=== PATIENT | female | born 1935 | race Caucasian/White ===

== ENCOUNTER → 2016-08-17 | Outpatient (CLI) | payer OTHER, MEDICARE ==
[~2016-08-17] MED LIST: ALBUAER2; AMLO-110 PO; AMOX1TAB43 PO; APIX1TAB3 PO; CHOL100010 PO; DOCU1TAB6 PO; ENOX40IN SQ; LEVO25TA PO; LTN/2025 PO; MISCCAP80 PO; ONDA4TAB46 PO; OXYC-609 PO; PARO1TAB27 PO; POTA-335 PO; POTA20TA16 PO; TIOTCAP INH; VNCS150 PO; VNTHFA/IN INH
[2016-08-17 11:13] LABS: BASO % 0.3 %; BASO ABS # 0.02 K/uL (0-0.2); COMPLETE YES; EOS % 1.3 %; HEMATOCRIT 39.4 % (37-47); IG% 0.1 %; LYMPH % 14.4 %; LYMPH ABS # 0.97 K/uL (1.2-3.4); MEAN CELL VOLUME 90.4 fL (80-100); MEAN CORPUSCULAR HGB CONC 33.2 g/dl (32-36); MEAN PLATELET VOLUME 11.3 fL (7.4-10.4); MONO % 7.9 %; PLATELET COUNT 159 K/uL (130-400); RED BLOOD COUNT 4.36 M/uL (4.2-5.4); WHITE BLOOD COUNT 6.73 K/uL (4.8-10.8)
[2016-08-17 12:40] LABS: BLOOD UREA NITROGEN 16 mg/dl (7-18); BUN/CREATININE RATIO 17.3 (10-20); CALCIUM 9.6 mg/dl (8.5-10.1); CARBON DIOXIDE 31 mmol/L (21-32); CHLORIDE 101 mmol/L (98-107); GLUCOSE 99 mg/dl (70-99); POTASSIUM 3.4 mmol/L (3.5-5.1); SODIUM 139 mmol/L (136-145)
== END ==
LOC: C.LAB 10:23
PROVIDERS: ATTEND Internal Medicine Geriatric Medicine
DX: I10 Essential (primary) hypertension (principal); E87.6 Hypokalemia; E03.9 Hypothyroidism, unspecified

== ENCOUNTER → 2016-08-24 | Outpatient (CLI) | payer OTHER, MEDICARE ==
[2016-08-24 10:58] LABS: BASO % 0.4 %; BASO ABS # 0.03 K/uL (0-0.2); COMPLETE YES; EOS % 0.5 %; HEMATOCRIT 39.1 % (37-47); IG% 0.2 %; LYMPH ABS # 1.36 K/uL (1.2-3.4); MEAN CELL VOLUME 90.7 fL (80-100); MEAN CORPUSCULAR HEMOGLOBIN 30.4 pg (25-34); MEAN CORPUSCULAR HGB CONC 33.5 g/dl (32-36); MEAN PLATELET VOLUME 11.3 fL (7.4-10.4); MONO % 6.6 %; NEUT % 76.3 %; PLATELET COUNT 165 K/uL (130-400); RED BLOOD COUNT 4.31 M/uL (4.2-5.4); WHITE BLOOD COUNT 8.49 K/uL (4.8-10.8)
[2016-08-24 11:04] LABS: PARTIAL THROMBOPLASTIN RATIO 1.3; PROTHROMBIN TIME (PATIENT) 11.2 SECONDS (9.0-12.0)
[2016-08-24 11:21] LABS: ALT/SGPT 24 U/L (12-78); AST/SGOT 44 U/L (15-37); BLOOD UREA NITROGEN 15 mg/dl (7-18); BUN/CREATININE RATIO 17.4 (10-20); CALCIUM 9.6 mg/dl (8.5-10.1); CARBON DIOXIDE 30 mmol/L (21-32); CHLORIDE 103 mmol/L (98-107); CREATININE 0.84 mg/dl (0.60-1.20); GLUCOSE 173 mg/dl (70-99); MAGNESIUM 2.2 mg/dl (1.8-2.4); POTASSIUM 3.6 mmol/L (3.5-5.1); SODIUM 141 mmol/L (136-145)
[2016-08-24 11:24] LABS: ALKALINE PHOSPHATASE 122 U/L (45-117); PHOSPHORUS 2.6 mg/dl (2.5-4.9)
== END | disposition home or self-care (01) ==
LOC: C.LAB 10:05
PROVIDERS: ATTEND Specialist
DX: C34.90 Malignant neoplasm of unspecified part of unspecified bronchus or lung (principal)

== ENCOUNTER → 2016-09-10 | Outpatient (CLI) | payer OTHER, MEDICARE ==
[2016-09-10 17:28] LABS: BLOOD UREA NITROGEN 19 mg/dl (7-18); BUN/CREATININE RATIO 20.5 (10-20); CALCIUM 9.4 mg/dl (8.5-10.1); CARBON DIOXIDE 31 mmol/L (21-32); CHLORIDE 101 mmol/L (98-107); CREATININE 0.93 mg/dl (0.60-1.20); GLUCOSE 134 mg/dl (70-99); POTASSIUM 4.3 mmol/L (3.5-5.1); SODIUM 140 mmol/L (136-145)
== END | disposition home or self-care (01) ==
LOC: C.LABBC 13:34
PROVIDERS: ATTEND Internal Medicine Geriatric Medicine
DX: E87.6 Hypokalemia (principal)

== ENCOUNTER → 2017-04-10 | Outpatient (CLI) | payer OTHER, MEDICARE ==
--- NOTE | 2017-04-10 10:01 | DIAGNOSTIC IMAGING REPORT ---
PET/CT SKULL-THIGH HISTORY: Lung carcinoma NON SMALL CELL LUNG CANCER TECHNIQUE: PET/CT was performed from the base of the skull through the pelvis following the intravenous administration of 15.4 mCi of F18-FDG. Non-contrast CT imaging was performed over the same range without breath-hold for attenuation correction of PET images and anatomic correlation, but not for primary interpretation as it is not of standard diagnostic quality. CT DOSE: COMPARISON: None. FINDINGS: HEAD AND NECK: Metabolically active nodes deep to the right as well as left sternocleidomastoid muscle. On the right a metabolically active node has SUVs of 2.7 and measures 7 mm. Deep to the left sternocleidomastoid muscle is a node measuring 11 mm with SUVs of 4.7 the remainder of the soft tissue neck is unremarkable. Chest: Evaluation of the chest demonstrates chronic apical scarring and bronchiectatic change. A right anterior paratracheal/right suprahilar mass is present. A maximum dimension of 3.8 cm. SUV characteristics are approximately 8.8. There is a right subcarinal node/paraesophageal node having SUVs of 9.9 and measuring 1.8 cm. Anterior precarinal nodes measure to 1.6 cm with SUVs to 2.2. Small additional metastatic foci active nodes are present. There is a left basilar chest wall mass demonstrates SUV characteristics to 6.0 this is surrounded by moderately metabolically active fawn pathology as well as postoperative change with a maximum dimension of 2.8 cm. A potential pathologic lower left rib fracture is present. Abdomen and pelvis: Metabolic activity characteristics of the liver spleen and pancreas are unremarkable. Bilateral renal activity is noted. Aneurysmal dilatation of the abdominal aorta is present measuring 23.6 cm. Unremarkable gastrointestinal and genitourinary tract activity is present. A minimally metabolically active nodes to 1.8 SUVs is demonstrated anterior to the right acetabulum and measuring 1.0 cm. MUSCULOSKELETAL: There is no FDG-avid or destructive bone lesion. IMPRESSION: 1. Findings consistent with diffuse metastatic disease. 2. Metabolically active upper cervical nodes bilaterally. 3. 3.8 cm right hilar/suprahilar mass. 4. Mediastinal and subcarinal metabolically active adenopathy. 5. Metabolically active mass combined with pleural reactive changes left lung base. Area of 6. Small metabolically active node anterior to the right acetabulum. 7. The appearance consistent with that of diffuse metastatic disease. The above report was generated using voice recognition software. It may contain grammatical, syntax or spelling errors. Electronically signed by: Bry Oscar M.D. 04/10/2017 9:59 AM Dictated Date/Time: 04/10/2017 9:46 AM
== END | disposition home or self-care (01) ==
LOC: C.PET 07:21
PROVIDERS: ATTEND Specialist
DX: C34.90 Malignant neoplasm of unspecified part of unspecified bronchus or lung (principal)

== ENCOUNTER 2017-04-21 13:13 | Inpatient (IN) | payer OTHER, MEDICARE ==
[~2017-04-21] VITALS: Ht 149.9 cm; Wt 34.9 kg
[~2017-04-21 13:13] MED LIST changes: -APIX1TAB3 PO; -ONDA4TAB46 PO; -OXYC-609 PO; -POTA20TA16 PO; -VNTHFA/IN INH
[2017-04-21] MEDS ORDERED: SODIUM CHLORIDE 0.9% 1000ML 2,000 ML IV STA (13:24)
[2017-04-21] MEDS ORDERED: HYDROmorphone INJ 0.5 MG/0.5 ML SYR IV STA (13:49)
[2017-04-21] MEDS ORDERED: APIX1TAB3 PO (13:52)
[2017-04-21] MEDS ORDERED: VNTHFA/IN INH (13:52)
[2017-04-21] MEDS ORDERED: ONDA4TAB46 PO (13:52)
[2017-04-21] MEDS ORDERED: OXYC-609 PO (13:52)
[2017-04-21] MEDS ORDERED: POTA20TA16 PO (13:52)
[2017-04-21 14:00] LABS: HEMATOCRIT 39.9 % (37-47); MEAN CELL VOLUME 82.4 fL (80-100); MEAN CORPUSCULAR HEMOGLOBIN 26.4 pg (25-34); MEAN CORPUSCULAR HGB CONC 32.1 g/dl (32-36); MEAN PLATELET VOLUME 9.9 fL (7.4-10.4); PLATELET COUNT 249 K/uL (130-400); RED BLOOD COUNT 4.84 M/uL (4.2-5.4); WHITE BLOOD COUNT 15.18 K/uL (4.8-10.8)
[2017-04-21 14:24] LABS: BASO % 0.1 %; BASO ABS # 0.02 K/uL (0-0.2); COMPLETE YES; EOS % 0.2 %; IG% 0.7 %; LYMPH % 3.6 %; LYMPH ABS # 0.55 K/uL (1.2-3.4); NEUT % 88.4 %
[2017-04-21 14:52] LABS: CALCIUM 9.8 mg/dl (8.5-10.1); CREATININE 1.4 mg/dl (0.60-1.20); MAGNESIUM 2.6 mg/dl (1.8-2.4)
[2017-04-21] MEDS ORDERED: MoRPHine SULFATE 10 MG/ML CARP/VIAL IV STA (15:49)
[2017-04-21 16:11] LABS: URINE APPEARANCE CLEAR (CLEAR); URINE BILIRUBIN NEG (NEG); URINE COLOR DK YELLOW; URINE EPITHELIAL CELL AUTO 20-30 /lpf (0-5); URINE NITRITE NEG (NEG); URINE SPECIFIC GRAVITY 1.011 (1.000-1.030); UROBILINOGEN NEG (NEG); ZZURINE CULT IF INDIC CATH NO
[2017-04-21 16:20] LABS: MANUAL MICROSCOPIC REQUIRED? NO; REVIEW REQ? NO
[2017-04-21] MEDS ORDERED: OPTIRAY 320 IV PRN (16:45)
--- NOTE | 2017-04-21 17:45 | DIAGNOSTIC IMAGING REPORT ---
ABD/PELVIS IV CONTRAST ONLY HISTORY: 81 years-old Female abd pain w/ hxt of cancer acute generalized abdominal pain. History of non-small cell lung carcinoma with diffuse metastasis. COMPARISON: PET CT 04/10/2017, CT abdomen and pelvis 12/15/2014 TECHNIQUE: Multiple axial CT images of the abdomen and pelvis were obtained following the intravenous administration of 116 mL Optiray 320. No oral contrast was administered. A dose lowering technique was used consistent with the principals of WILLIAMRA. FINDINGS: Chronic opacification of the left lower lobe with adjacent skin defect and chronically fractured left ribs are noted. Radiopaque material in the adjacent pleural space again noted as well with trace left pleural effusion. There is subsegmental right basilar atelectasis. No pneumoperitoneum identified. Imaged inferior cardiac chambers are mildly enlarged. Liver is unremarkable. Low attenuating foci throughout the spleen are seen measuring up to 4 mm, too small to characterize. There is a linear 2.4 x 1.2 cm defect noted involving the superior spleen seen on image 42 of series 3 with mild/moderate degree of surrounding perisplenic fluid. There is severe pancreatic atrophy. The right adrenal gland is unremarkable. There is nodular thickening of the left adrenal gland. Low attenuating foci of the kidneys bilaterally suggest renal cyst. No hydronephrosis. Urinary bladder is collapsed. Uterus is age-appropriate. Fusiform dilation of the infrarenal abdominal aorta is seen, 4.4 x 4.2 cm is unchanged. No bulky retroperitoneal adenopathy identified. Fluid-filled distended stomach is noted. Fluid-filled mildly dilated loops of small bowel are seen within the lower pelvis measuring up to 2.9 cm. Colonic diverticulosis without diverticulitis. Multiple fluid-filled distended loops of colon are seen with some air-fluid levels. Moderate body wall edema. No suspicious lytic or blastic bony lesions. There is mild anterior endplate compression deformity of T12. IMPRESSION: 1. 2.4 x 1.2 cm linear low attenuating defect of the superior spleen is new from prior study suggesting grade 2 laceration in the setting of recent trauma or alternatively if no trauma has been reported, a splenic infarction could have a similar appearance. Mild perisplenic fluid is also present. 2. Soft tissue defect of the posterior lateral chest wall with chronic bony changes of the adjacent ribs noted in addition to subsegmental left basilar opacities with trace left pleural effusion. 3. Dilated fluid-filled loops of colon and to lesser extent distal small bowel suggests diarrheal state with enteritis or ileus. 4. Additional chronic findings as above. The above report was generated using voice recognition software. It may contain grammatical, syntax or spelling errors. Electronically signed by: Sal Garg M.D. 04/21/2017 5:43 PM Dictated Date/Time: 04/21/2017 5:25 PM
--- NOTE | 2017-04-21 17:55 | DIAGNOSTIC IMAGING REPORT ---
CHEST ONE VIEW PORTABLE HISTORY: 81 years-old Female weak acute weakness. History of metastatic non-small cell lung cancer COMPARISON: Chest radiograph 04/16/2016 TECHNIQUE: Portable upright AP view of the chest FINDINGS: Cardiac silhouette is mildly enlarged. There is stable postsurgical changes of the left hemithorax. Patient is rotated to the left. Mildly progressive patchy right basilar opacities are noted with background interstitial coarsening. Surgical clips project over the left lung apex and left hilar region. Fiducial markers redemonstrated. There is mild pulmonary vascular congestion. Bones are osteopenic. IMPRESSION: 1. Mildly worsened patchy right basilar opacities suggest atelectasis or pneumonia. 2. Pulmonary vascular congestion and interstitial coarsening is suspicious for mild pulmonary edema. 3. Otherwise stable postsurgical changes of the left hemithorax. The above report was generated using voice recognition software. It may contain grammatical, syntax or spelling errors. Electronically signed by: Sal Garg M.D. 04/21/2017 5:53 PM Dictated Date/Time: 04/21/2017 5:51 PM
[2017-04-21] MEDS: PIPERACILLIN/TAZOBACTAM 3.375 GM/100ML D5W IV STA ×2 (17:56→18:20)
[2017-04-21] MEDS ORDERED: VANCOMYCIN INJ 700 MG in SODIUM CHLORIDE 0.9% 250ML 250 ML IV STA (17:56)
[2017-04-21] MEDS ORDERED: ACETAMINOPHEN IV 100 ML IV PRN (18:45)
[2017-04-21] MEDS ORDERED: ATROPINE SULFATE 1% OP SOLN 5 ML BTL PO PRN (18:45)
[2017-04-21] MEDS ORDERED: ONDANSETRON INJ 2 MG/ML 2 ML VIAL IV PRN (18:45)
[2017-04-21] MEDS ORDERED: DiphenhydrAMINE HCL 50 MG/ML VIAL IV PRN ×2 (18:45→19:00)
[2017-04-21] MEDS ORDERED: LORAZEPAM 2 MG/ML 1 ML VIAL IV PRN (18:45)
--- NOTE | 2017-04-21 19:17 | EMERGENCY ROOM VISIT NOTE ---
History Report prepared by Main: Nilda Turner Under the Supervision of: Dr. Harjeet Serra D.O. First contact with patient: 13:13 Chief Complaint: ABDOMINAL PAIN Stated Complaint: ABD PAIN History of Present Illness The patient is a 81 year old female who presents to the Emergency Room with complaints of persistent abdominal pain starting this morning. She presents to the ED by EMS from home where she lives with her daughter. She has a 12 year history of lung cancer which was recently found to have metastasized. She was told that there was nothing else to be done. She is no longer on chemo or radiation. She has an appointment in 3 days to discuss hospice with her PCP. She is unsure if the cancer has spread into her abdomen. This morning she started complaining of lower abdominal pain. She normally does have abdominal pain, but her current pain is different. She had been constipated for the past 7 days. She has been taking oxycodone. She had a bowel movement earlier today after taking stool softeners. She has been feeling weak. She has not eaten or drank today. She normally only wears oxygen at nighttime. She denies any chest pain, SOB, dysuria. She still has her gallbladder and appendix. She did not take any of her medications this morning including oxycodone. Source of History: patient, family Onset: this morning Position: abdomen (lower) Quality: other (pain) Timing: other (persistent) Associated Symptoms: + weakness, No chest pain, No SOB, No urinary symptoms Review of Systems See HPI for pertinent positives & negatives. A total of 10 systems reviewed and were otherwise negative. Past Medical & Surgical Medical Problems: (1) COPD (chronic obstructive pulmonary disease) (2) End of life care (3) HTN (hypertension) (4) Hypercholesteremia (5) Lung cancer (6) Pneumonia Surgical Problems: (1) History of lobectomy of lung Family History Omitted secondary to age Social History Smoking Status: Current Every Day Smoker Marital Status: single Housing Status: lives alone Current/Historical Medications Scheduled Amlodipine (Norvasc), 5 MG PO DAILY Apixaban (Eliquis), 5 MG PO BID Benazepril/Hctz (Lotensin Hct), 1 TAB PO DAILY Cholecalciferol (Vitamin D), 2,000 INTER.UNIT PO DAILY Levothyroxine Sodium (Synthroid), 25 MCG PO DAILY Paroxetine (Paxil), 30 MG PO DAILY Potassium Chloride (Micro-K Ext Rel), 20 MEQ PO BID Probiotic Product (Probiotic), 1 CAP PO DAILY Tiotropium [place] (Spiriva Handihaler), 18 MCG INH DAILY Scheduled PRN Albuterol Hfa (Ventolin Hfa), 2-4 PUFFS INH Q6H PRN for Shortness of Breath Docusate Sodium (Docusate Sodium), 100 MG PO BID PRN for Constipation Ondansetron Hcl (Zofran), 4 MG PO Q8 PRN for Nausea Oxycodone HCl (Oxycodone HCl), 5 MG PO Q6 PRN for Pain Allergies Coded Allergies: No Known Allergies (Verified , 04/21/17) Physical Exam Vital Signs Date Time Temp Pulse Resp B/P (MAP) Pulse Ox O2 Delivery O2 Flow Rate FiO2 04/21/17 19:36 105 18 101/73 93 04/21/17 19:00 107 18 104/75 91 Nasal Cannula 04/21/17 18:36 102 24 92 04/21/17 18:31 106/78 04/21/17 18:06 102 95 04/21/17 18:01 108/77 04/21/17 17:36 120 94 04/21/17 17:31 110/77 04/21/17 17:06 116 95 04/21/17 17:01 119/85 04/21/17 16:58 129/90 04/21/17 16:01 111/85 04/21/17 15:48 113 26 96 04/21/17 15:31 112/82 04/21/17 15:18 106 25 98 04/21/17 15:01 115/86 04/21/17 14:48 101 25 99 04/21/17 14:43 101 27 99 04/21/17 14:31 132/91 04/21/17 14:13 107 30 97 04/21/17 14:01 123/94 04/21/17 13:55 112 14 112/82 96 Nasal Cannula 3.0 04/21/17 13:53 112/82 04/21/17 13:43 116 23 95 04/21/17 13:26 112 04/21/17 13:19 04/21/17 13:13 36.4 111 14 /67 96 Nasal Cannula 3.0 Physical Exam GENERAL: malnourished, chronically ill appearing, minimal distress, cachectic EYE EXAM: normal conjunctiva OROPHARYNX: no exudate, no erythema, lips, buccal mucosa, and tongue normal and mucous membranes are moist NECK: supple, no nuchal rigidity, no adenopathy, non-tender LUNGS: Clear to auscultation. Normal chest wall mechanics HEART: no murmurs, S1 normal and S2 normal ABDOMEN: abdomen soft, non-tender, normo-active bowel sounds, no masses, no rebound or guarding. BACK: Wound on left upper posterior chest wall with a green purulent discharge. SKIN: no rashes and no bruising UPPER EXTREMITIES: upper extremities are grossly normal. LOWER EXTREMITIES: No pitting edema. NEURO EXAM: Normal sensorium, without focal deficit Medical Decision & Procedures ER Provider Diagnostic Interpretation: Radiology results as stated below per my review and the radiologist's interpretation: CHEST ONE VIEW PORTABLE HISTORY: 81 years-old Female weak acute weakness. History of metastatic non-small cell lung cancer COMPARISON: Chest radiograph 04/16/2016 TECHNIQUE: Portable upright AP view of the chest FINDINGS: Cardiac silhouette is mildly enlarged. There is stable postsurgical changes of the left hemithorax. Patient is rotated to the left. Mildly progressive patchy right basilar opacities are noted with background interstitial coarsening. Surgical clips project over the left lung apex and left hilar region. Fiducial markers redemonstrated. There is mild pulmonary vascular congestion. Bones are osteopenic. IMPRESSION: 1. Mildly worsened patchy right basilar opacities suggest atelectasis or pneumonia. 2. Pulmonary vascular congestion and interstitial coarsening is suspicious for mild pulmonary edema. 3. Otherwise stable postsurgical changes of the left hemithorax. The above report was generated using voice recognition software. It may contain grammatical, syntax or spelling errors. Electronically signed by: Sal Garg M.D. 04/21/2017 5:53 PM Dictated Date/Time: 04/21/2017 5:51 PM ABD/PELVIS IV CONTRAST ONLY HISTORY: 81 years-old Female abd pain w/ hxt of cancer acute generalized abdominal pain. History of non-small cell lung carcinoma with diffuse metastasis. COMPARISON: PET CT 04/10/2017, CT abdomen and pelvis 12/15/2014 TECHNIQUE: Multiple axial CT images of the abdomen and pelvis were obtained following the intravenous administration of 116 mL Optiray 320. No oral contrast was administered. A dose lowering technique was used consistent with the principals of WILLIAMRA. FINDINGS: Chronic opacification of the left lower lobe with adjacent skin defect and chronically fractured left ribs are noted. Radiopaque material in the adjacent pleural space again noted as well with trace left pleural effusion. There is subsegmental right basilar atelectasis. No pneumoperitoneum identified. Imaged inferior cardiac chambers are mildly enlarged. Liver is unremarkable. Low attenuating foci throughout the spleen are seen measuring up to 4 mm, too small to characterize. There is a linear 2.4 x 1.2 cm defect noted involving the superior spleen seen on image 42 of series 3 with mild/moderate degree of surrounding perisplenic fluid. There is severe pancreatic atrophy. The right adrenal gland is unremarkable. There is nodular thickening of the left adrenal gland. Low attenuating foci of the kidneys bilaterally suggest renal cyst. No hydronephrosis. Urinary bladder is collapsed. Uterus is age-appropriate. Fusiform dilation of the infrarenal abdominal aorta is seen, 4.4 x 4.2 cm is unchanged. No bulky retroperitoneal adenopathy identified. Fluid-filled distended stomach is noted. Fluid-filled mildly dilated loops of small bowel are seen within the lower pelvis measuring up to 2.9 cm. Colonic diverticulosis without diverticulitis. Multiple fluid-filled distended loops of colon are seen with some air-fluid levels. Moderate body wall edema. No suspicious lytic or blastic bony lesions. There is mild anterior endplate compression deformity of T12. IMPRESSION: 1. 2.4 x 1.2 cm linear low attenuating defect of the superior spleen is new from prior study suggesting grade 2 laceration in the setting of recent trauma or alternatively if no trauma has been reported, a splenic infarction could have a similar appearance. Mild perisplenic fluid is also present. 2. Soft tissue defect of the posterior lateral chest wall with chronic bony changes of the adjacent ribs noted in addition to subsegmental left basilar opacities with trace left pleural effusion. 3. Dilated fluid-filled loops of colon and to lesser extent distal small bowel suggests diarrheal state with enteritis or ileus. 4. Additional chronic findings as above. The above report was generated using voice recognition software. It may contain grammatical, syntax or spelling errors. Electronically signed by: Sal Garg M.D. 04/21/2017 5:43 PM Dictated Date/Time: 04/21/2017 5:25 PM Laboratory Results 04/21/17 13:40 Red Blood Count 4.84, Mean Corpuscular Volume 82.4, Mean Corpuscular Hemoglobin 26.4, Mean Corpuscular Hemoglobin Concent 32.1, Mean Platelet Volume 9.9, Neutrophils (%) (Auto) 88.4, Lymphocytes (%) (Auto) 3.6, Monocytes (%) (Auto) 7.0, Eosinophils (%) (Auto) 0.2, Basophils (%) (Auto) 0.1, Neutrophils # (Auto) 13.41, Lymphocytes # (Auto) 0.55, Monocytes # (Auto) 1.07, Eosinophils # (Auto) 0.03, Basophils # (Auto) 0.02 04/21/17 13:40 Test 04/21/17 13:40 04/21/17 15:50 White Blood Count 15.18 K/uL (4.8-10.8) Red Blood Count 4.84 M/uL (4.2-5.4) Hemoglobin 12.8 g/dL (12.0-16.0) Hematocrit 39.9 % (37-47) Mean Corpuscular Volume 82.4 fL (80-100) Mean Corpuscular Hemoglobin 26.4 pg (25-34) Mean Corpuscular Hemoglobin Concent 32.1 g/dl (32-36) Platelet Count 249 K/uL (130-400) Mean Platelet Volume 9.9 fL (7.4-10.4) Neutrophils (%) (Auto) 88.4 % Lymphocytes (%) (Auto) 3.6 % Monocytes (%) (Auto) 7.0 % Eosinophils (%) (Auto) 0.2 % Basophils (%) (Auto) 0.1 % Neutrophils # (Auto) 13.41 K/uL (1.4-6.5) Lymphocytes # (Auto) 0.55 K/uL (1.2-3.4) Monocytes # (Auto) 1.07 K/uL (0.11-0.59) Eosinophils # (Auto) 0.03 K/uL (0-0.5) Basophils # (Auto) 0.02 K/uL (0-0.2) RDW Standard Deviation 54.5 fL (36.4-46.3) RDW Coefficient of Variation 18.0 % (11.5-14.5) Immature Granulocyte % (Auto) 0.7 % Immature Granulocyte # (Auto) 0.10 K/uL (0.00-0.02) Anion Gap 14.0 mmol/L (3-11) Est Creatinine Clear Calc Drug Dose 18.0 ml/min Estimated GFR () 41.3 Estimated GFR (Non- 35.6 BUN/Creatinine Ratio 13.0 (10-20) Calcium Level 9.8 mg/dl (8.5-10.1) Magnesium Level 2.6 mg/dl (1.8-2.4) Total Bilirubin 1.2 mg/dl (0.2-1) Direct Bilirubin 0.5 mg/dl (0-0.2) Aspartate Amino Transf (AST/SGOT) 213 U/L (15-37) Alanine Aminotransferase (ALT/SGPT) 63 U/L (12-78) Alkaline Phosphatase 179 U/L (45-117) Total Protein 8.0 gm/dl (6.4-8.2) Albumin 2.6 gm/dl (3.4-5.0) Lipase 210 U/L (73-393) Urine Color DK YELLOW Urine Appearance CLEAR (CLEAR) Urine pH 8.0 (4.5-7.5) Urine Specific [place] 1.011 (1.000-1.030) Urine Protein NEG (NEG) Urine Glucose (UA) NEG (NEG) Urine Ketones NEG (NEG) Urine Occult Blood NEG (NEG) Urine Nitrite NEG (NEG) Urine Bilirubin NEG (NEG) Urine Urobilinogen NEG (NEG) Urine Leukocyte Esterase NEG (NEG) Urine WBC (Auto) 1-5 /hpf (0-5) Urine RBC (Auto) 0-4 /hpf (0-4) Urine Hyaline Casts (Auto) 1-5 /lpf (0-5) Urine Epithelial Cells (Auto) 20-30 /lpf (0-5) Urine Bacteria (Auto) NEG (NEG) Laboratory results per my review. Medications Administered Medications (Trade) Dose Ordered Sig/Lili Route Start Time Stop Time Status Last Admin Dose Admin Sodium Chloride 2,000 ml @ 999 mls/hr Q2H1M STAT IV 04/21/17 13:24 04/21/17 15:24 DC 04/21/17 13:53 999 MLS/HR Hydromorphone HCl (Dilaudid Inj) 0.5 mg NOW STAT IV 04/21/17 13:49 04/21/17 13:50 DC 04/21/17 14:34 0.5 MG Morphine Sulfate (MoRPHine SULFATE INJ) 6 mg NOW STAT IV 04/21/17 15:49 04/21/17 15:50 DC 04/21/17 16:06 6 MG ED Course ED COURSE: Vital signs were reviewed and showed hypotension, tachycardia. The patients medical record was reviewed The above diagnostic studies were performed and reviewed. ED treatments and interventions as stated above. 1314: The patient was evaluated in room B4B. A complete history and physical examination was performed. 1324: NSS 2000 ml @ 999 mls/hr IV. 1349: Dilaudid Inj 0.5 mg IV. 1549: Morphine Sulfate 6 mg IV. 1736: Radiology called to discuss the results of the CT with me. 1756: Vancomycin HCl 700 mg/Sodium Chloride 264 ml @ 125 mls/hr IV, Zosyn Iv 3.375 gm IV. 1742: Upon reevaluation, the patient is stable. I had a long conversation with the family. She denies any falls. She has not missed any doses of her blood thinner. I discussed my findings with the patient and her family and they understand and agree with the treatment plan. Based on the patients age, coexisting illnesses, exam and lab findings the decision to treat as an inpatient was made. The patient remained stable while under my care. The patient will be evaluated for further management. 1759: I reviewed the patient's case with Dr. Johnson, [facility] hospitalist. He will evaluate the patient for further management. Medical Decision Differential diagnoses includes but is not limited to gastritis, peptic ulcer disease, GERD, gallbladder disease, pancreatitis, small bowel obstruction, acute coronary syndrome, pericarditis, ischemic bowel, irritable bowel disease, irritable bowel syndrome, appendicitis, diverticulitis, malignancy, hernia, urinary tract infection, torsion, perforation, trauma, infectious. Patient is a 81-year-old female who presents to ER with metastatic cancer who was recently discharged from [place]. Patient is no longer receiving radiation or chemotherapy. Patient is a DO NOT RESUSCITATE/DNI. Patient is complaining of abdominal pain. IV was established she is given fluids along with IV narcotics. Systolic blood pressures were in the 80s. She is a leukocytosis of 15,000. She is tachycardic. She is given IV antibiotics for pneumonia. CT of abdomen and pelvis suggest grade 2 splenic laceration versus/ infarction. No recent trauma. Discussed with patient and family at bedside. Patient does not want to be transferred and at this time they had no hospice/ home health set up. Family and patient would like to stay here. I felt this was reasonable. Patient understands that if she continues to bleed in her abdomen we would be unable to do anything about that. She understands this as well as family and is agreeable to be admitted. Medication Reconcilliation Current Medication List: was personally reviewed by me Blood Pressure Screening Patient's blood pressure: Low blood pressure Consults Time Called: 1754 Consulting Physician: Dr. Johnson, [facility] hospitalist Returned Call: [phone] I reviewed the patient's case with him. He will evaluate the patient for further management. Impression Primary Impression: Pneumonia Additional Impression: Splenic infarct Scribe Attestation The scribe's documentation has been prepared under my direction and personally reviewed by me in its entirety. I confirm that the note above accurately reflects all work, treatment, procedures, and medical decision making performed by me. Departure Information Dispostion Being Evaluated By Hospitalist Referrals Danny Alfaro M.D. (PCP) Patient Instructions My [facility] Problem Qualifiers Primary Impression: Pneumonia Pneumonia type: due to unspecified organism Laterality: unspecified laterality Lung location: unspecified part of lung Qualified Codes: J18.9 - Pneumonia, unspecified organism
--- NOTE | 2017-04-21 19:37 | History and Physical ---
History & Physical Date & Time of Service: Apr 21, 2017 at 19:25 Chief Complaint: Abd Pain Primary Care Physician: Danny Alfaro M.D. History of Present Illness Source: patient, family The patient is a 81-year-old female with end-stage metastatic lung cancer, was recently told by her cancer physicians in [place] that they were no longer able to treat her with chemotherapy or radiation, and she and her family were to have an appointment to discuss hospice with her PCP in 3 days. Today however , she developed severe abdominal pain, her family brought her to the hospital for assessment, she was given IV morphine by emergency department, and is sedated and not responsive to my examination. Past Medical/Surgical History Medical Problems: (1) COPD (chronic obstructive pulmonary disease) Status: Chronic (2) HTN (hypertension) Status: Chronic (3) Hypercholesteremia Status: Chronic (4) Lung cancer Status: Chronic Surgical Problems: (1) History of lobectomy of lung Status: Resolved Family History Omitted secondary to age Social History Smoking Status: Current Every Day Smoker Smokeless Tobacco Use: No Alcohol Use: none Drug Use: none Marital Status: single Housing status: lives with family Occupational Status: retired Immunizations History of Influenza Vaccine: Yes History of Tetanus Vaccine?: Yes Tetanus Immunization Date: November 29, 2009 History of Pneumococcal: YES, 2004. History of Hepatitis B Vaccine: No Multi-Drug Resistant Organisms History of MDRO: No Allergies Coded Allergies: No Known Allergies (Verified , 04/21/17) Home Medications Scheduled Amlodipine (Norvasc), 5 MG PO DAILY Apixaban (Eliquis), 5 MG PO BID Benazepril/Hctz (Lotensin Hct), 1 TAB PO DAILY Cholecalciferol (Vitamin D), 2,000 INTER.UNIT PO DAILY Levothyroxine Sodium (Synthroid), 25 MCG PO DAILY Paroxetine (Paxil), 30 MG PO DAILY Potassium Chloride (Micro-K Ext Rel), 20 MEQ PO BID Probiotic Product (Probiotic), 1 CAP PO DAILY Tiotropium Broadus (Spiriva Handihaler), 18 MCG INH DAILY Scheduled PRN Albuterol Hfa (Ventolin Hfa), 2-4 PUFFS INH Q6H PRN for Shortness of Breath Docusate Sodium (Docusate Sodium), 100 MG PO BID PRN for Constipation Ondansetron Hcl (Zofran), 4 MG PO Q8 PRN for Nausea Oxycodone HCl (Oxycodone HCl), 5 MG PO Q6 PRN for Pain Review of Systems The patient is not able to contribute to my review of systems due to sedation. Physical Exam Vital Signs Date Time Temp Pulse Resp B/P (MAP) Pulse Ox O2 Delivery O2 Flow Rate FiO2 04/21/17 19:00 107 18 104/75 91 Nasal Cannula 04/21/17 18:36 102 24 92 04/21/17 18:31 106/78 04/21/17 18:06 102 95 04/21/17 18:01 108/77 04/21/17 17:36 120 94 04/21/17 17:31 110/77 04/21/17 17:06 116 95 04/21/17 17:01 119/85 04/21/17 16:58 129/90 04/21/17 16:01 111/85 04/21/17 15:48 113 26 96 04/21/17 15:31 112/82 04/21/17 15:18 106 25 98 04/21/17 15:01 115/86 04/21/17 14:48 101 25 99 04/21/17 14:43 101 27 99 04/21/17 14:31 132/91 04/21/17 14:13 107 30 97 04/21/17 14:01 123/94 04/21/17 13:55 112 14 112/82 96 Nasal Cannula 3.0 04/21/17 13:53 112/82 04/21/17 13:43 116 23 95 04/21/17 13:26 112 04/21/17 13:19 04/21/17 13:13 36.4 111 14 96 Nasal Cannula 3.0 The patient is sedated, lying in bed, in no acute distress. HEENT--PERRL, EOMI, mucous membranes and oropharynx dry. Neck--supple, no JVD or bruits, thyroid normal, trachea midline, no adenopathy. Heart--mildly tachycardic and regular, no murmurs, rubs or gallops. Lungs--diminished breath sounds throughout due to sedation, no respiratory distress, no accessory muscle use. Abdomen--normal bowel sounds and soft, mildly distended. Extremities--no cyanosis, clubbing or edema. There are good distal pulses b/l. Dermatologic--normal skin turgor, normal color, warm and dry, no abnormal lymph nodes, no rash. Neurologic--cranial nerves II through XII grossly intact. Rheumatologic--sedated and not able to be performed. Psychiatric--sedated Diagnostics Laboratory Results Results Past 24 Hours Test 04/21/17 13:40 04/21/17 15:50 Range/Units White Blood Count 15.18 4.8-10.8 K/uL Red Blood Count 4.84 4.2-5.4 M/uL Hemoglobin 12.8 12.0-16.0 g/dL Hematocrit 39.9 37-47 % Mean Corpuscular Volume 82.4 80-100 fL Mean Corpuscular Hemoglobin 26.4 25-34 pg Mean Corpuscular Hemoglobin Concent 32.1 32-36 g/dl Platelet Count 249 130-400 K/uL Mean Platelet Volume 9.9 7.4-10.4 fL Neutrophils (%) (Auto) 88.4 % Lymphocytes (%) (Auto) 3.6 % Monocytes (%) (Auto) 7.0 % Eosinophils (%) (Auto) 0.2 % Basophils (%) (Auto) 0.1 % Neutrophils # (Auto) 13.41 1.4-6.5 K/uL Lymphocytes # (Auto) 0.55 1.2-3.4 K/uL Monocytes # (Auto) 1.07 0.11-0.59 K/uL Eosinophils # (Auto) 0.03 0-0.5 K/uL Basophils # (Auto) 0.02 0-0.2 K/uL RDW Standard Deviation 54.5 36.4-46.3 fL RDW Coefficient of Variation 18.0 11.5-14.5 % Immature Granulocyte % (Auto) 0.7 % Immature Granulocyte # (Auto) 0.10 0.00-0.02 K/uL Sodium Level 140 136-145 mmol/L Potassium Level 4.0 3.5-5.1 mmol/L Chloride Level 100 98-107 mmol/L Carbon Dioxide Level 26 21-32 mmol/L Anion Gap 14.0 3-11 mmol/L Blood Urea Nitrogen 18 7-18 mg/dl Creatinine 1.40 0.60-1.20 mg/dl Est Creatinine Clear Calc Drug Dose 18.0 ml/min Estimated GFR () 41.3 Estimated GFR (Non- 35.6 BUN/Creatinine Ratio 13.0 10-20 Random Glucose 91 70-99 mg/dl Calcium Level 9.8 8.5-10.1 mg/dl Magnesium Level 2.6 1.8-2.4 mg/dl Total Bilirubin 1.2 0.2-1 mg/dl Direct Bilirubin 0.5 0-0.2 mg/dl Aspartate Amino Transf (AST/SGOT) 213 15-37 U/L Alanine Aminotransferase (ALT/SGPT) 63 12-78 U/L Alkaline Phosphatase 179 45-117 U/L Total Protein 8.0 6.4-8.2 gm/dl Albumin 2.6 3.4-5.0 gm/dl Lipase 210 73-393 U/L Urine Color DK YELLOW Urine Appearance CLEAR CLEAR Urine pH 8.0 4.5-7.5 Urine Specific [place] 1.011 1.000-1.030 Urine Protein NEG NEG Urine Glucose (UA) NEG NEG Urine Ketones NEG NEG Urine Occult Blood NEG NEG Urine Nitrite NEG NEG Urine Bilirubin NEG NEG Urine Urobilinogen NEG NEG Urine Leukocyte Esterase NEG NEG Urine WBC (Auto) 1-5 0-5 /hpf Urine RBC (Auto) 0-4 0-4 /hpf Urine Hyaline Casts (Auto) 1-5 0-5 /lpf Urine Epithelial Cells (Auto) 20-30 0-5 /lpf Urine Bacteria (Auto) NEG NEG Diagnostic Radiology Patient Name: LAURENT GODINEZ Unit Number: [id number] Dictated: 04/21/171724 Transcribed: 04/21/171726 JRB Printed Date/Time: [~ rep prt dt]/[~ rep prt tm] [~ rep ct labl] - [~ rep ct ivnm] [facility] [place] [address] Dictated: 04/21/171724 Transcribed: 04/21/171726 JRB Printed Date/Time: [~ rep prt dt]/[~ rep prt tm] [~ rep ct labl] - [~ rep ct ivnm] ABD/PELVIS IV CONTRAST ONLY HISTORY: 81 years-old Female abd pain w/ hxt of cancer acute generalized abdominal pain. History of non-small cell lung carcinoma with diffuse metastasis. COMPARISON: PET CT 04/10/2017, CT abdomen and pelvis 12/15/2014 TECHNIQUE: Multiple axial CT images of the abdomen and pelvis were obtained following the intravenous administration of 116 mL Optiray 320. No oral contrast was administered. A dose lowering technique was used consistent with the principals of MARTI. FINDINGS: Chronic opacification of the left lower lobe with adjacent skin defect and chronically fractured left ribs are noted. Radiopaque material in the adjacent pleural space again noted as well with trace left pleural effusion. There is subsegmental right basilar atelectasis. No pneumoperitoneum identified. Imaged inferior cardiac chambers are mildly enlarged. Liver is unremarkable. Low attenuating foci throughout the spleen are seen measuring up to 4 mm, too small to characterize. There is a linear 2.4 x 1.2 cm defect noted involving the superior spleen seen on image 42 of series 3 with mild/moderate degree of surrounding perisplenic fluid. There is severe pancreatic atrophy. The right adrenal gland is unremarkable. There is nodular thickening of the left adrenal gland. Low attenuating foci of the kidneys bilaterally suggest renal cyst. No hydronephrosis. Urinary bladder is collapsed. Uterus is age-appropriate. Fusiform dilation of the infrarenal abdominal aorta is seen, 4.4 x 4.2 cm is unchanged. No bulky retroperitoneal adenopathy identified. Fluid-filled distended stomach is noted. Fluid-filled mildly dilated loops of small bowel are seen within the lower pelvis measuring up to 2.9 cm. Colonic diverticulosis without diverticulitis. Multiple fluid-filled distended loops of colon are seen with some air-fluid levels. Moderate body wall edema. No suspicious lytic or blastic bony lesions. There is mild anterior endplate compression deformity of T12. IMPRESSION: 1. 2.4 x 1.2 cm linear low attenuating defect of the superior spleen is new from prior study suggesting grade 2 laceration in the setting of recent trauma or alternatively if no trauma has been reported, a splenic infarction could have a similar appearance. Mild perisplenic fluid is also present. 2. Soft tissue defect of the posterior lateral chest wall with chronic bony changes of the adjacent ribs noted in addition to subsegmental left basilar opacities with trace left pleural effusion. 3. Dilated fluid-filled loops of colon and to lesser extent distal small bowel suggests diarrheal state with enteritis or ileus. 4. Additional chronic findings as above. The above report was generated using voice recognition software. It may contain grammatical, syntax or spelling errors. Electronically signed by: Sal Garg M.D. 04/21/2017 5:43 PM Dictated Date/Time: 04/21/2017 5:25 PM The status of this report is Signed. Draft = Not yet reviewed or approved by Radiologist. Signed = Reviewed and approved by Radiologist. <AttendingPhy></AttendingPhy> <FamilyPhy>Danny Alfaro M.D.</FamilyPhy> < PrimaryPhy>Danny Alfaro M.D.</PrimaryPhy> <UnitNumber>[id number]</UnitNumber > <VisitNumber>[id number]</VisitNumber> <PatientName>LAURENT GODINEZ</ PatientName> <DateOfBirth>1935</DateOfBirth> <Location>[facility]</Location> < ServiceDate>04/21/17</ServiceDate> <MNE>ESINDI</MNE> <OrderingPhy>Harjeet Serra DO</OrderingPhy> <OrderingPhyMNE>f rep ord dr lynn</OrderingPhyMNE> < DictatingPhyMNE>f rep dict dr lynn</DictatingPhyMNE> <CCListMNE>f rep ct mne</ CCListMNE> <AdmittingPhyMNE>f pt admit dr lynn</AdmittingPhyMNE> <AttendingPhyMNE >f pt attend dr lynn</AttendingPhyMNE> <ConsultingPhyMNE>f pt consult dr lynn</ConsultingPhyMNE> <FamilyPhyMNE>f pt fam dr lynn</FamilyPhyMNE> <OtherPhyMNE>f pt other dr lynn</OtherPhyMNE> < PrimaryPhyMNE>f pt prim care dr lynn</PrimaryPhyMNE> <ReferringPhyMNE>f pt referring dr lynn</ReferringPhyMNE> Patient Name: LAURENT GODINEZ Unit Number: [id number] Dictated: 04/21/171750 Transcribed: 04/21/171750 JRB Printed Date/Time: [~ rep prt dt]/[~ rep prt tm] [~ rep ct labl] - [~ rep ct ivnm] [facility] Radiology Department [place], [place] [id number] Dictated: 04/21/171750 Transcribed: 04/21/171750 BRANDON Printed Date/Time: [~ rep prt dt]/[~ rep prt tm] [~ rep ct labl] - [~ rep ct ivnm] [~ rep ct add3]] CHEST ONE VIEW PORTABLE HISTORY: 81 years-old Female weak acute weakness. History of metastatic non-small cell lung cancer COMPARISON: Chest radiograph 04/16/2016 TECHNIQUE: Portable upright AP view of the chest FINDINGS: Cardiac silhouette is mildly enlarged. There is stable postsurgical changes of the left hemithorax. Patient is rotated to the left. Mildly progressive patchy right basilar opacities are noted with background interstitial coarsening. Surgical clips project over the left lung apex and left hilar region. Fiducial markers redemonstrated. There is mild pulmonary vascular congestion. Bones are osteopenic. IMPRESSION: 1. Mildly worsened patchy right basilar opacities suggest atelectasis or pneumonia. 2. Pulmonary vascular congestion and interstitial coarsening is suspicious for mild pulmonary edema. 3. Otherwise stable postsurgical changes of the left hemithorax. The above report was generated using voice recognition software. It may contain grammatical, syntax or spelling errors. Electronically signed by: Sal Garg M.D. 04/21/2017 5:53 PM Dictated Date/Time: 04/21/2017 5:51 PM The status of this report is Signed. Draft = Not yet reviewed or approved by Radiologist. Signed = Reviewed and approved by Radiologist. <AttendingPhy></AttendingPhy> <FamilyPhy>Danny Alfaro M.D.</FamilyPhy> < PrimaryPhy>Danny Alfaro M.D.</PrimaryPhy> <UnitNumber>[id number]</UnitNumber > <VisitNumber>[id number]</VisitNumber> <PatientName>LAURENT GODINEZ</ PatientName> <DateOfBirth>1935</DateOfBirth> <Location>[facility]</Location> < ServiceDate>04/21/17</ServiceDate> <MNE>ESINDI</MNE> <OrderingPhy>[place] Harjeet Willson DO</OrderingPhy> <OrderingPhyMNE>f rep ord dr lynn</OrderingPhyMNE> < DictatingPhyMNE>f rep dict dr lynn</DictatingPhyMNE> <CCListMNE>f rep ct mne</ CCListMNE> <AdmittingPhyMNE>f pt admit dr lynn</AdmittingPhyMNE> <AttendingPhyMNE >f pt attend dr lynn</AttendingPhyMNE> <ConsultingPhyMNE>f pt consult dr lynn</ConsultingPhyMNE> <FamilyPhyMNE>f pt fam dr lynn</FamilyPhyMNE> <OtherPhyMNE>f pt other dr lynn</OtherPhyMNE> < PrimaryPhyMNE>f pt prim care dr lynn</PrimaryPhyMNE> <ReferringPhyMNE>f pt referring dr lynn</ReferringPhyMNE> Impression Assessment and Plan End-stage metastatic lung cancer/end-of-life care-- I had an extensive conversation with the patient's family. We discussed that the patient and family had been planning to speak with her PCP regarding hospice treatment. The patient and family would not want any aggressive therapy done, so I have canceled antibiotics from the emergency department. They just want her to be comfortable at this point.. The patient will be admitted to a hospice room. Morphine sulfate 4 mg IV every hour when necessary. Lorazepam 0.5 mg IV every hour when necessary. Transderm scopolamine changing every 3 days. Atropine sulfate one drop on the tongue every hour when necessary. Benadryl 50 mg IV every 4 hours when necessary. Zofran 4 mg IV every 6 hours when necessary. Consult palliative care in the a.m. Level of Care Med/Surg Advanced Directives Existing Advance Directive: Yes Existing Living Will: Yes Existing Power of Collator Operator: Yes Resuscitation Status DO NOT RESUSCITATE VTE Prophylaxis VTE Risk Assessment Done? Y/N: Yes Risk Level: High Given or contraindicated: Treatment not indicated
[2017-04-21] MEDS: MoRPHine SULFATE 4 MG/ML 1 ML CARP\\VIAL IV PRN ×3 (20:28→23:16)
[2017-04-21] MEDS: LORAZEPAM INJ 0.5 MG in SYRINGE 0.75 ML IV PRN ×3 (20:48→23:17)
[2017-04-21] MEDS ORDERED: SCOPOLAMINE 1.5 MG TDSY TD SCH (21:00)
[2017-04-21 22:31] VITALS: BP 85/67; PULSE 107; TEMP 36.5; O2SAT 93; Ht 149.9 cm; Wt 34.9 kg
[2017-04-22] VITALS: O2SAT 93
[2017-04-22] MEDS ORDERED: CHECK SCOPOLAMINE PATCH PLACEMENT SCH
[2017-04-22] MEDS: MoRPHine SULFATE 4 MG/ML 1 ML CARP\\VIAL IV PRN ×4 (00:23→02:10)
[2017-04-22] MEDS: LORAZEPAM INJ 0.5 MG in SYRINGE 0.75 ML IV PRN ×4 (00:24→02:10)
--- NOTE | 2017-04-28 05:32 | Discharge Summary ---
Discharge Summary Date of Service Apr 28, 2017. Date of service for discharge/ notice for patient was 2016. Discharge Summary The patient was admitted from the emergency department on April 21 for end-of- life care after long discussion with family regarding her terminal diagnosis of metastatic lung cancer. The patient had been going to [place] for cancer therapy, and had been recently told by her oncologist there that there was nothing more that could be done for her, and the family had an appointment scheduled to discuss end-of-life care with hospice in 3 days. However, the patient became less responsive, and began to experience more pain, and the patient's family brought her into the emergency department for assessment. The patient was admitted to a hospice room, with the usual end-of-life care medications, and was pronounced by staff on the morning of April 22 with family in attendance. Patient's principal diagnosis on certificate was: Metastatic lung cancer.
== END 2017-04-22 05:40 | disposition expired | DRG 947 ==
LOC: EDBD 13:13 → C.EDB 13:15 → C.MED 18:41 → ENRESERV 19:23
PROVIDERS: ADMIT Hospitalist; ATTEND Hospitalist
DX: G89.3 Neoplasm related pain (acute) (chronic) (principal); J18.9 Pneumonia, unspecified organism; C34.90 Malignant neoplasm of unspecified part of unspecified bronchus or lung; C79.9 Secondary malignant neoplasm of unspecified site; Z51.5 Encounter for palliative care; D73.5 Infarction of spleen; J44.9 Chronic obstructive pulmonary disease, unspecified; I10 Essential (primary) hypertension; F17.200 Nicotine dependence, unspecified, uncomplicated; Z66 Do not resuscitate; K59.00 Constipation, unspecified; R10.84 Generalized abdominal pain; Z92.3 Personal history of irradiation